=== PATIENT | female | born 1985 | race Caucasian/White ===

== ENCOUNTER 2021-05-30 16:52 | Emergency (ER) | payer MEDICAID ==
[~2021-05-30 16:52] MED LIST: CLON-528 PO; CYCL-394 PO; DOXY-8 PO; HYDR1TAB PO; METR-159 PO; NAPR-56 PO; NORCO10T PO; ZOF4T PO
== END 2021-05-30 19:49 | disposition left against medical advice (07) ==
LOC: ER 16:52
DX: R51.9 Headache, unspecified (principal); Z53.21 Procedure and treatment not carried out due to patient leaving prior to being seen by health care provider